=== PATIENT | female | born 1990 | race African-American/Black ===

== ENCOUNTER → 2016-12-05 | Outpatient (REF) | payer OTHER | LOC: M SFHCLERA 18:36 | PROVIDERS: ATTEND Nurse Practitioner Family | DX: N89.8 Other specified noninflammatory disorders of vagina (principal) ==

== ENCOUNTER 2017-02-03 18:10 | Emergency (ER) | payer OTHER ==
[~2017-02-03] VITALS: Ht 162.6 cm; Wt 93.6 kg
[2017-02-03] MEDS ORDERED: ZOLO100T PO (18:26)
[2017-02-03] MEDS ORDERED: SING10TA32 PO (18:26)
[2017-02-03] MEDS ORDERED: PRAZ5CAP PO (18:26)
[2017-02-03] MEDS ORDERED: BUSP30TA PO (18:26)
[2017-02-03] MEDS ORDERED: IRON65TA PO (18:26)
[2017-02-03] MEDS ORDERED: NAPR500T PO (20:08)
[2017-02-03 20:27] VITALS: BP 123/82
[2017-02-03] MEDS ORDERED: IBUPROFEN 600 MG TAB PO ONE (20:30)
== END 2017-02-03 20:35 | disposition home or self-care (01) ==
LOC: M ED 18:10
DX: R68.84 Jaw pain (principal); Z88.2 Allergy status to sulfonamides; Z79.899 Other long term (current) drug therapy

== ENCOUNTER → 2017-03-01 | Outpatient (REF) | payer OTHER ==
[~2017-03-01] MED LIST: BUSP30TA PO; IRON65TA PO; KEFL500C17 PO; NAPR500T PO; PRAZ5CAP PO; SING10TA32 PO; ZOLO100T PO
== END ==
LOC: M SFHCLERA 13:44
PROVIDERS: ATTEND Physician Assistant
DX: N89.8 Other specified noninflammatory disorders of vagina (principal)

== ENCOUNTER 2017-03-10 08:07 | Emergency (ER) | payer OTHER ==
[~2017-03-10] VITALS: Ht 162.6 cm; Wt 93.2 kg
[~2017-03-10 08:07] MED LIST changes: -KEFL500C17 PO
[2017-03-10] MEDS ORDERED: KETOROLAC TROMETHAMINE 10 MG TAB PO ONE (09:00)
[2017-03-10] MEDS ORDERED: LIDOCAINE 2% MDV 20 ML VIAL SC ONE (10:15)
--- NOTE | 2017-03-10 10:29 | REP ---
RIGHT HAND, FOUR VIEWS: There is no evidence of an acute fracture, dislocation or intrinsic bone disease. No radiopaque foreign body is seen in the soft tissues, particularly the 5th digit. IMPRESSION: No fracture or dislocation. Signed by Nic Brito MD 03/10/2017 05:15 P
[2017-03-10] MEDS ORDERED: KEFL500C17 PO (10:49)
[2017-03-10 10:58] VITALS: BP 145/82
== END 2017-03-10 10:59 | disposition home or self-care (01) ==
LOC: M ED 08:07
DX: S61.216A Laceration without foreign body of right little finger without damage to nail, initial encounter (principal); W25.XXXA Contact with sharp glass, initial encounter; Y92.010 Kitchen of single-family (private) house as the place of occurrence of the external cause; Y93.G1 Activity, food preparation and clean up; Y99.8 Other external cause status; J45.909 Unspecified asthma, uncomplicated; D64.9 Anemia, unspecified; F43.10 Post-traumatic stress disorder, unspecified; Z88.2 Allergy status to sulfonamides

== ENCOUNTER → 2017-06-29 | Outpatient (REF) | payer OTHER ==
[2017-06-29 18:01] LABS: CHLAMYDIA DNA AMPLIFICATION NEGATIVE (NEGATIVE); GC DNA AMPLIFICATION NEGATIVE (NEGATIVE)
== END ==
LOC: M SFHCLERA 14:14
DX: N76.0 Acute vaginitis (principal)

== ENCOUNTER → 2018-06-19 | Outpatient (CLI) | payer OTHER ==
[~2018-06-19] MED LIST changes: +CIPR-249 PO; +KEFL500C17 PO; +NAPR-50 PO; -NAPR500T PO
--- NOTE | 2018-06-19 18:51 | REP ---
Chest two views HISTORY: Influenza Comparison: None The lungs are clear. The heart is normal in size. The pulmonary vasculature is normal in appearance. The bony structure is intact. IMPRESSION: No acute disease. Electronically Signed by Archie Lindquist MD 06/19/2018 06:43 P
== END ==
LOC: M LRY 18:26
PROVIDERS: ATTEND Physician Assistant
DX: J10.1 Influenza due to other identified influenza virus with other respiratory manifestations (principal)

== ENCOUNTER → 2018-06-19 | Outpatient (REF) | payer OTHER | LOC: M SFHCLERA 19:15 | PROVIDERS: ATTEND Physician Assistant | DX: J10.1 Influenza due to other identified influenza virus with other respiratory manifestations (principal) ==

== ENCOUNTER 2021-11-30 03:00 | Inpatient (IN) | payer OTHER ==
[~2021-11-30] VITALS: Ht 162.6 cm; Wt 96.1 kg
[2021-11-30] VITALS (13 sets, daily range): BP systolic 87–130; BP diastolic 50–73
[~2021-11-30 03:00] MED LIST changes: -NAPR-50 PO; +NAPR-837 PO
[2021-11-30] MEDS ORDERED: PENICILLIN G POTASSIUM IV 5 MU in D5W MINI-BAG PLUS 100 ML IV ONE (03:55)
[2021-11-30] MEDS ORDERED: ONDANSETRON 4MG 2ML VIAL IV PRN (03:55)
[2021-11-30] MEDS ORDERED: ACETAMINOPHEN TAB 650MG DOSE (2X325MG) PO PRN (03:55)
[2021-11-30] MEDS ORDERED: OXYTOCIN DRIP 30 UNITS in IV 1 EA IV PRN ×6 (03:55)
[2021-11-30] MEDS ORDERED: METHYLERGONOVINE MALEATE 0.2 MG/ML VIAL (J2210) IM PRN (03:55)
[2021-11-30] MEDS ORDERED: TRANEXAMIC ACID INJection 1,000 MG in NS 100 ML IV PRN (03:55)
[2021-11-30] MEDS ORDERED: LIDOCAINE 1% MDV 20ML VIAL INFIL PRN (03:55)
[2021-11-30] MEDS ORDERED: DOCUSATE SODIUM 100MG CAPSULE PO PRN (03:55)
[2021-11-30] MEDS ORDERED: diphenhydrAMINE 25MG CAP PO PRN (03:55)
[2021-11-30] MEDS ORDERED: CARBOPROST TROMETHAMINE 250 MCG/ML AMP IM PRN (03:55)
[2021-11-30] MEDS: BETAMETHASONE SOLUSPAN 6MG/ML 5ML VIAL (J0702 PER 3MG) IM SCH (04:15)
[2021-11-30 04:24] LABS: BASO % 0.2 % (0.0-1.0); EOS # 0.1 10^3/uL (0.0-0.5); EOS % 1.2 % (0.0-3.0); HEMATOCRIT 29.4 % (36.0-47.0); HEMOGLOBIN 9.1 g/dl (12.0-15.5); LYMPH # 2.6 10^3/uL (1.5-5.0); LYMPH % 21.5 % (24.0-44.0); MEAN CORPUSCULAR HEMOGLOBIN 23.8 pg (27.0-33.0); MONO # 0.8 10^3/uL (0.0-0.8); MONO % 6.6 % (2.0-8.0); NEUTROPHILS # 8.4 10^3/uL (1.5-8.5); NEUTROPHILS % 70.1 % (36.0-66.0); PLATELET COUNT, AUTOMATED 340 10^3/uL (150-450); RED BLOOD COUNT 3.82 10^6/uL (4.00-5.40)
[2021-11-30] MEDS: LR 1,000 ML IV SCH ×3 (04:32→10:26)
[2021-11-30] MEDS: PENICILLIN G POTASSIUM IV 2.5 MU in IV 1 EA IV SCH ×4 (08:36→22:02)
[2021-12-01] VITALS (13 sets, daily range): BP systolic 91–131; BP diastolic 51–79
[2021-12-01] MEDS: PENICILLIN G POTASSIUM IV 2.5 MU in IV 1 EA IV SCH ×6 (01:19→21:11)
[2021-12-01] MEDS: LR 1,000 ML IV SCH ×4 (02:46→23:17)
[2021-12-01] MEDS: BETAMETHASONE SOLUSPAN 6MG/ML 5ML VIAL (J0702 PER 3MG) IM SCH (04:16)
[2021-12-01] MEDS ORDERED: CALCIUM CARBONATE 500 MG CHEW U/D PO PRN (21:50)
[2021-12-02] VITALS (36 sets, daily range): BP systolic 95–178; BP diastolic 50–93
[2021-12-02] MEDS: PENICILLIN G POTASSIUM IV 2.5 MU in IV 1 EA IV SCH ×3 (01:01→06:35)
[2021-12-02] MEDS: LR 1,000 ML IV SCH (06:11)
[2021-12-02] MEDS ORDERED: FENTANYL 2MCG/ML ROPIVACAINE 0.2% IN 0.9% NACL 100ML IVBAG As Ordered ONE (06:29)
[2021-12-02] MEDS ORDERED: ePHEDrine SULFATE 25 MG/5 ML(5MG/ML) SYRINGE IVP PRN (06:35)
[2021-12-02] MEDS ORDERED: FENTANYL/ROPIVACAINE/NACL BAG 100 ML EPIDURAL SCH ×2 (06:35→07:15)
[2021-12-02] MEDS ORDERED: ONDANSETRON 4MG 2ML VIAL IV PRN ×2 (06:35→12:10)
[2021-12-02] MEDS ORDERED: LR 500 ML IV PRN (06:35)
[2021-12-02] MEDS ORDERED: diphenhydrAMINE 50MG/ML VIAL (J1200) IV PRN (06:35)
[2021-12-02] MEDS ORDERED: EPIDURAL/PCA KEYS XX PRN ×2 (06:35→07:15)
[2021-12-02] MEDS ORDERED: NALOXONE INJ 0.4MG/1ML VIAL (J2310 PER 1MG) IV PRN (06:35)
[2021-12-02] MEDS ORDERED: OXYTOCIN DRIP 30 UNITS in IV 1 EA IV SCH ×2 (07:55→12:10)
[2021-12-02] MEDS ORDERED: LR 1,000 ML IV SCH ×2 (07:55)
[2021-12-02 10:27] LABS: CORD GAS ABE A -6.3; CORD GAS HCO3 A 22.7 MEQ/L; CORD GAS O2 SAT A 34.1 %; CORD GAS PCO2 A 58.3 mmHg; CORD GAS PH A 7.208 UNITS; CORD GAS PO2 A 16.2 mmHg; CORD GAS SBC A 17.8 MEQ/L; CORD GAS TCO2 A 24.5 MEQ/L
[2021-12-02 10:30] LABS: CORD GAS ABE V -1.2; CORD GAS HCO3 V 24.6 MEQ/L; CORD GAS O2 SAT V 72.8 %; CORD GAS PCO2 V 44.7 mmHg; CORD GAS PH V 7.359 UNITS; CORD GAS SBC V 22.7 MEQ/L
[2021-12-02] MEDS ORDERED: RHOGAM 300 MCG (1500 IU) INJ (J2790) IM SCH (12:10)
[2021-12-02] MEDS ORDERED: ANUSOL HC CREAM 30GM TOP PRN (12:10)
[2021-12-02] MEDS ORDERED: ACETAMINOPHEN 500 MG TAB PO PRN (12:10)
[2021-12-02] MEDS ORDERED: DIBUCAINE 1% OINTMENT 30GM TOP PRN (12:10)
[2021-12-02] MEDS ORDERED: IBUPROFEN 800 MG TAB PO PRN (12:10)
[2021-12-02] MEDS ORDERED: METHYLERGONOVINE MALEATE 0.2 MG TAB PO PRN (12:10)
[2021-12-02] MEDS ORDERED: DOCUSATE SODIUM 100MG CAPSULE PO PRN (12:10)
[2021-12-02] MEDS ORDERED: METHYLERGONOVINE MALEATE 0.2 MG/ML VIAL (J2210) IM PRN (12:10)
[2021-12-03 06:00] VITALS: BP 120/62
[2021-12-03] MEDS ORDERED: IBUP80TA PO (07:32)
[2021-12-03] MEDS ORDERED: COLA100C5 PO (07:32)
[2021-12-03] MEDS ORDERED: ACET-683 PO (07:32)
[2021-12-03] MEDS ORDERED: PRENATAL VITAMINS CHEWABLE TABLET PO SCH (09:00)
[2021-12-04] MEDS ORDERED: MEASLES,MUMPS,RUBELLA VACCINE INJ (MMR-II) (90707) SC.IMMUN ONE (09:00)
== END 2021-12-03 12:52 | disposition home or self-care (01) | DRG 560 ==
LOC: M LDO 03:00 → M LDI 03:50 → M OBS 12-02 13:55
PROVIDERS: ADMIT Obstetrics & Gynecology; ATTEND Obstetrics & Gynecology
PROC: 3E033VJ Introduction of Other Hormone into Peripheral Vein, Percutaneous Approach (ICD-10-PCS; 2021-11-30)
PROC: 10E0XZZ Delivery of Products of Conception, External Approach (ICD-10-PCS; principal; 2021-12-02)
DX: O42.113 Preterm premature rupture of membranes, onset of labor more than 24 hours following rupture, third trimester (principal); Z3A.34 34 weeks gestation of pregnancy; Z37.0 Single live birth; O99.824 Streptococcus B carrier state complicating childbirth; O76 Abnormality in fetal heart rate and rhythm complicating labor and delivery; O69.81X0 Labor and delivery complicated by cord around neck, without compression, not applicable or unspecified

== ENCOUNTER → 2023-06-08 | Outpatient (CLI) | payer OTHER ==
[~2023-06-08] MED LIST changes: +ACET-683 PO; +COLA100C5 PO; +IBUP80TA PO; +MONT-5 PO; -SING10TA32 PO
[2023-06-08 16:13] LABS: HEMATOCRIT 33.1 % (36.0-47.0); HEMOGLOBIN 10.9 g/dl (12.0-15.5); MEAN CORPUSCULAR HEMOGLOBIN 27.3 pg (27.0-33.0); MEAN CORPUSCULAR HGB CONC 32.9 g/dl (32.0-36.5); MEAN CORPUSCULAR VOLUME 82.8 fl (80.0-96.0); PLATELET COUNT, AUTOMATED 380 10^3/uL (150-450); WHITE BLOOD COUNT 9.7 10^3/uL (4.0-10.0)
[2023-06-08 17:05] LABS: HIV 1&2 SCREEN NEGATIVE (NEGATIVE)
[2023-06-08 17:29] LABS: CHLAMYDIA DNA AMPLIFICATION NEGATIVE (NEGATIVE); GC DNA AMPLIFICATION NEGATIVE (NEGATIVE)
== END ==
LOC: M PLALAB 11:51
PROVIDERS: ATTEND Specialist
DX: Z34.81 Encounter for supervision of other normal pregnancy, first trimester (principal)

== ENCOUNTER → 2023-07-31 | Outpatient (CLI) | payer OTHER | LOC: M WHC 11:48 | PROVIDERS: ATTEND Obstetrics & Gynecology | DX: Z34.82 Encounter for supervision of other normal pregnancy, second trimester (principal) ==

== ENCOUNTER → 2023-08-23 | Outpatient (CLI) | payer OTHER | LOC: M WHC 09:35 | PROVIDERS: ATTEND Obstetrics & Gynecology | DX: Z36.2 Encounter for other antenatal screening follow-up (principal); Z3A.22 22 weeks gestation of pregnancy; O32.1XX0 Maternal care for breech presentation, not applicable or unspecified ==

== ENCOUNTER 2023-08-29 16:09 | Outpatient (CLI) | payer OTHER ==
[~2023-08-29] VITALS: Ht 162.6 cm; Wt 88.8 kg
[2023-08-29 16:26] VITALS: BP 120/61
[2023-08-29] MEDS: ONDANSETRON 4MG ORAL DISINTEGRATING TAB SL PRN (16:53)
[2023-08-29 17:30] LABS: HEMATOCRIT 27.6 % (36.0-47.0); MEAN CORPUSCULAR HEMOGLOBIN 26.5 pg (27.0-33.0); MEAN CORPUSCULAR HGB CONC 32.6 g/dl (32.0-36.5); MEAN CORPUSCULAR VOLUME 81.2 fl (80.0-96.0); PLATELET COUNT, AUTOMATED 328 10^3/uL (150-450); WHITE BLOOD COUNT 8.2 10^3/uL (4.0-10.0)
[2023-08-29 17:58] LABS: LIPASE 32 U/L (12-53)
[2023-08-29 18:00] LABS: AMYLASE 44 U/L (30-118)
[2023-08-29 18:01] LABS: ALBUMIN 2.7 G/DL (3.2-5.2); ALKALINE PHOSPHATASE 49 U/L (46-116); ALT/SGPT 15 U/L (7.0-40); AST/SGOT 14 U/L (<34); BILIRUBIN,TOTAL 0.3 MG/DL (0.3-1.2); BLOOD UREA NITROGEN 6 MG/DL (9-23); CALCIUM LEVEL 8.4 MG/DL (8.5-10.1); CARBON DIOXIDE LEVEL 25 MMOL/L (20-31); CHLORIDE LEVEL 105 MMOL/L (98-107); CREATININE FOR GFR 0.44 MG/DL (0.55-1.30); GLOMERULAR FILTRATION RATE > 60.0 (>60); GLUCOSE, FASTING 95 MG/DL (60-100); POTASSIUM SERUM 3.8 MMOL/L (3.5-5.1); SODIUM LEVEL 134 MMOL/L (136-145)
[2023-08-29] MEDS ORDERED: FERR325T3 PO (18:44)
[2023-08-29] MEDS ORDERED: ONDA4TAB6 SL (18:44)
== END 2023-08-29 18:45 | disposition home or self-care (01) ==
LOC: M LDO 16:09
PROVIDERS: ATTEND Obstetrics & Gynecology
DX: O99.612 Diseases of the digestive system complicating pregnancy, second trimester (principal); O99.012 Anemia complicating pregnancy, second trimester; K52.9 Noninfective gastroenteritis and colitis, unspecified; Z88.2 Allergy status to sulfonamides; D50.9 Iron deficiency anemia, unspecified; Z3A.23 23 weeks gestation of pregnancy
CPT/HCPCS: 36415; 59025; 76815; 80053; 82150; 83690; 85027; G0463

== ENCOUNTER → 2023-10-04 | Outpatient (CLI) | payer OTHER ==
[~2023-10-04] MED LIST changes: +FERR325T3 PO; +ONDA4TAB6 SL
[2023-10-04 15:41] LABS: PERCENT SATURATION 28.1 % (13.2-45.0)
[2023-10-04 15:44] LABS: FERRITIN 3.4 NG/ML (7.3-270.7)
[2023-10-04 15:46] LABS: HEMATOCRIT 29.7 % (36.0-47.0); HEMOGLOBIN 9.3 g/dl (12.0-15.5); MEAN CORPUSCULAR HEMOGLOBIN 25.2 pg (27.0-33.0); MEAN CORPUSCULAR HGB CONC 31.3 g/dl (32.0-36.5); MEAN CORPUSCULAR VOLUME 80.5 fl (80.0-96.0); PLATELET COUNT, AUTOMATED 384 10^3/uL (150-450); RED BLOOD COUNT 3.69 10^6/uL (4.00-5.40); WHITE BLOOD COUNT 11.1 10^3/uL (4.0-10.0)
[2023-10-04 17:16] LABS: GC DNA AMPLIFICATION NEGATIVE (NEGATIVE)
== END ==
LOC: M PLALAB 12:23
PROVIDERS: ATTEND Obstetrics & Gynecology
DX: Z34.92 Encounter for supervision of normal pregnancy, unspecified, second trimester (principal)

== ENCOUNTER 2023-10-12 21:35 | Outpatient (CLI) | payer OTHER ==
[~2023-10-12] VITALS: Ht 162.6 cm; Wt 93.9 kg
[2023-10-12 21:51] VITALS: BP 116/59
[2023-10-12] MEDS ORDERED: FOLI400T13 PO (22:10)
[2023-10-12] MEDS ORDERED: PRENTAB9 PO (22:10)
[2023-10-12] MEDS ORDERED: HOME MED LIST COMPLETE! XX SCH (22:15)
== END 2023-10-12 22:38 | disposition home or self-care (01) ==
LOC: M LDO 21:35
PROVIDERS: ATTEND Specialist
DX: O36.8120 Decreased fetal movements, second trimester, not applicable or unspecified (principal); Z3A.20 20 weeks gestation of pregnancy
CPT/HCPCS: 59025; 76815; G0463

== ENCOUNTER 2023-10-16 09:34 | Outpatient (CLI) | payer OTHER ==
[~2023-10-16] VITALS: Ht 160 cm; Wt 90.0 kg
[~2023-10-16 09:34] MED LIST changes: +ALBUTEROL SULFATE 2.5MG/0.5ML INH NEB SOLN INH PRN; +EPINEPHrine INJ 1 MG/ML 1ML AMP IM PRN; +FOLI400T13 PO; +NS 1,000 ML IV SCH; +PRENTAB9 PO; +diphenhydrAMINE 50MG/ML VIAL IV PRN; +methylPREDNISolone 125MG 2ML VIAL IV PRN
[2023-10-16 09:40] VITALS: BP 122/58; O2SAT 100
[2023-10-16] MEDS: FERRIC CARBOXYMALTOSE INJ 750 MG, VIAL MATE ADAPTER 1 EACH in NS 250 ML IV ONE (09:41)
[2023-10-16 10:55] VITALS: BP 129/57; O2SAT 99
== END 2023-10-16 11:15 | disposition home or self-care (01) ==
LOC: M INFU 09:34
PROVIDERS: ATTEND Obstetrics & Gynecology
DX: D64.9 Anemia, unspecified (principal); Z88.2 Allergy status to sulfonamides
CPT/HCPCS: 96365; J1439

== ENCOUNTER → 2023-11-20 | Outpatient (CLI) | payer OTHER ==
[~2023-11-20] MED LIST changes: -ALBUTEROL SULFATE 2.5MG/0.5ML INH NEB SOLN INH PRN; -EPINEPHrine INJ 1 MG/ML 1ML AMP IM PRN; -NS 1,000 ML IV SCH; +ONDA-282 SL; -ONDA4TAB6 SL; -diphenhydrAMINE 50MG/ML VIAL IV PRN; -methylPREDNISolone 125MG 2ML VIAL IV PRN
== END ==
LOC: M WHC 13:10
PROVIDERS: ATTEND Obstetrics & Gynecology
DX: Z34.83 Encounter for supervision of other normal pregnancy, third trimester (principal); Z3A.35 35 weeks gestation of pregnancy

== ENCOUNTER → 2023-11-24 | Outpatient (REF) | payer OTHER | LOC: M PLALAB 11:46 | PROVIDERS: ATTEND Advanced Practice Midwife | DX: O09.893 Supervision of other high risk pregnancies, third trimester (principal) ==

== ENCOUNTER 2023-12-11 11:00 | Outpatient (CLI) | payer OTHER ==
[~2023-12-11] VITALS: Ht 162.6 cm; Wt 92.7 kg
[~2023-12-11 11:00] MED LIST changes: +ALBUTEROL SULFATE 2.5MG/0.5ML INH NEB SOLN INH PRN; +EPINEPHrine INJ 1 MG/ML 1ML AMP IM PRN; +NS 1,000 ML IV SCH; +diphenhydrAMINE 50MG/ML VIAL IV PRN; +methylPREDNISolone 125MG 2ML VIAL IV PRN
[2023-12-11 11:25] VITALS: BP 121/79; O2SAT 100
[2023-12-11] MEDS: FERRIC CARBOXYMALTOSE INJ 750 MG in NS 250 ML (>50kg) IV ONE (11:29)
[2023-12-11 12:00] VITALS: BP 130/70; O2SAT 100
== END 2023-12-11 12:05 | disposition home or self-care (01) ==
LOC: M INFU 11:00
PROVIDERS: ATTEND Obstetrics & Gynecology
DX: D64.9 Anemia, unspecified (principal); Z88.2 Allergy status to sulfonamides
CPT/HCPCS: 96365; J1439

== ENCOUNTER 2023-12-15 08:08 | Inpatient (IN) | payer OTHER ==
[~2023-12-15] VITALS: Ht 162.6 cm; Wt 96.3 kg
[2023-12-15] VITALS (14 sets, daily range): BP systolic 112–135; BP diastolic 57–70; O2SAT 99
[2023-12-15] MEDS: LACTATED RINGER'S 1000 ML IV STA (03:00)
[~2023-12-15 08:08] MED LIST changes: -ALBUTEROL SULFATE 2.5MG/0.5ML INH NEB SOLN INH PRN; -EPINEPHrine INJ 1 MG/ML 1ML AMP IM PRN; -NS 1,000 ML IV SCH; -diphenhydrAMINE 50MG/ML VIAL IV PRN; -methylPREDNISolone 125MG 2ML VIAL IV PRN
[2023-12-15] MEDS ORDERED: LIDOCAINE 1% MDV 20ML VIAL INFIL PRN (10:05)
[2023-12-15] MEDS ORDERED: TRANEXAMIC ACID INJection 1,000 MG in NS 100 ML IV PRN (10:05)
[2023-12-15] MEDS ORDERED: OXYTOCIN DRIP 30 UNITS in IV 1 EA IV PRN (10:05)
[2023-12-15] MEDS ORDERED: METHYLERGONOVINE MALEATE 0.2MG/ML 1ML VIAL IM PRN (10:05)
[2023-12-15] MEDS ORDERED: CARBOPROST TROMETHAMINE 250 MCG/ML AMP IM PRN (10:05)
[2023-12-15] MEDS: miSOPROStol 50MCG 1/2 TABLET PO SCH (10:37)
[2023-12-15 10:49] LABS: HEMATOCRIT 32.6 % (36.0-47.0); HEMOGLOBIN 10.3 g/dl (12.0-15.5); MEAN CORPUSCULAR HGB CONC 31.6 g/dl (32.0-36.5); MEAN CORPUSCULAR VOLUME 82.3 fl (80.0-96.0); PLATELET COUNT, AUTOMATED 261 10^3/uL (150-450); RED BLOOD COUNT 3.96 10^6/uL (4.00-5.40); WHITE BLOOD COUNT 10.4 10^3/uL (4.0-10.0)
[2023-12-15 11:57] LABS: HEPATITIS C VIRUS ABY INDEX 0.04 INDEX (<0.8)
[2023-12-16] VITALS (18 sets, daily range): BP systolic 111–174; BP diastolic 59–107; O2SAT 99
[2023-12-16] MEDS ORDERED: LR 500 ML IV PRN ×2 (03:25)
[2023-12-16] MEDS ORDERED: NALOXONE INJ 0.4MG/1ML VIAL IV PRN ×2 (03:25)
[2023-12-16] MEDS ORDERED: diphenhydrAMINE 50MG/ML VIAL IV PRN ×2 (03:25)
[2023-12-16] MEDS ORDERED: FENTANYL/ROPIVACAINE/NACL BAG 100 ML EPIDURAL SCH (03:25)
[2023-12-16] MEDS ORDERED: ePHEDrine SULFATE 25 MG/5 ML(5MG/ML) SYRINGE IVP PRN ×2 (03:25)
[2023-12-16] MEDS ORDERED: EPIDURAL/PCA KEYS XX PRN ×2 (03:25)
[2023-12-16] MEDS ORDERED: ONDANSETRON 4MG 2ML VIAL IV PRN ×2 (03:25)
[2023-12-16] MEDS: FENTANYL/ROPIVACAINE/NACL BAG 100 ML EPIDURAL SCH (03:50)
[2023-12-16] MEDS ORDERED: IBUPROFEN 600MG TAB PO PRN (05:10)
[2023-12-16] MEDS ORDERED: ACETAMINOPHEN 500 MG TAB PO PRN (05:10)
[2023-12-16] MEDS ORDERED: DIBUCAINE 1% OINTMENT 30GM TOP PRN (05:10)
[2023-12-16] MEDS ORDERED: CALCIUM CARBONATE 500 MG CHEW U/D PO PRN (05:10)
[2023-12-16] MEDS ORDERED: ACETAMINOPHEN TAB 650MG DOSE (2X325MG) PO PRN (05:10)
[2023-12-16] MEDS ORDERED: METHYLERGONOVINE MALEATE 0.2 MG TAB PO PRN (05:10)
[2023-12-16] MEDS ORDERED: ANUSOL HC CREAM 30GM TOP PRN (05:10)
[2023-12-16] MEDS ORDERED: DOCUSATE SODIUM 100MG CAPSULE PO PRN (05:10)
[2023-12-16] MEDS ORDERED: RHO(D) IMMUNE GLOBULIN/MALTOSE 500MCG(2500IU)/2.2ML VIAL (WINRHO) IM SCH (05:10)
[2023-12-16] MEDS: IBUPROFEN 800 MG TAB PO PRN (10:01)
[2023-12-16] MEDS: PRENATAL VITAMINS CHEWABLE TABLET PO SCH (10:01)
[2023-12-17 06:00] VITALS: BP 133/79; O2SAT 100
[2023-12-17] MEDS ORDERED: ACET-683 PO (11:02)
[2023-12-17] MEDS ORDERED: IBUP80TA PO (11:02)
[2023-12-18] MEDS ORDERED: MEASLES,MUMPS,RUBELLA VACCINE INJ (MMR-II) SC.IMMUN ONE (09:00)
== END 2023-12-17 14:02 | disposition home or self-care (01) | DRG 807 ==
LOC: M LDI 08:08 → M OBS 12-16 08:21
PROVIDERS: ADMIT Advanced Practice Midwife; ATTEND Advanced Practice Midwife
PROC: 0HQ9XZZ Repair Perineum Skin, External Approach (ICD-10-PCS; 2023-12-15)
PROC: 3E0P7VZ Introduction of Hormone into Female Reproductive, Via Natural or Artificial Opening (ICD-10-PCS; 2023-12-15)
PROC: 10E0XZZ Delivery of Products of Conception, External Approach (ICD-10-PCS; principal; 2023-12-16)
DX: O34.00 Maternal care for unspecified congenital malformation of uterus, unspecified trimester (principal); Z37.0 Single live birth; O34.13 Maternal care for benign tumor of corpus uteri, third trimester; D25.9 Leiomyoma of uterus, unspecified; Z3A.39 39 weeks gestation of pregnancy; O69.82X0 Labor and delivery complicated by other cord entanglement, without compression, not applicable or unspecified; O70.0 First degree perineal laceration during delivery